=== PATIENT | female | born 1995 | race African-American/Black ===

== ENCOUNTER 2017-11-17 03:17 | Emergency (ER) | payer SELFPAY ==
[2017-11-17 03:32] VITALS: BP 133/92; PULSE 83; RESP 18; TEMP 98; O2SAT 100
[2017-11-17] MEDS ORDERED: SODIUM CHLOR 0.9% 1000 ML INJ 1,000 ML IV ONE (04:00)
[2017-11-17] MEDS ORDERED: IBUPROFEN 600 MG TAB PO ONE (04:15)
--- NOTE | 2017-11-17 04:16 | PD ---
HPI . contraction like pain Chief Complaint: Related Problem Time Seen by Provider: 03:35 Travel History International Travel<30 days: No Contact w/Intl Traveler<30days: No Traveled to known affect area: No History of Present Illness HPI pt is having bleeding vaginally for 3 hrs and severe cramping suprapubic abdomen that started tonight, pt is 7 weeks , she reports that she has twin conception and severe 10/10 cramping and bright red blood , contraction like pain . intermittent , Pt has had prior spontaneous losses and terminations as well. PFSH Past Medical History Immunizations Current: Yes ?: : 6 Para: 0 Miscarriage: 3 : 2 Social History Alcohol Use: Yes Tobacco Use: Yes Substance Use: No Allergies-Medications (Allergen,Severity, Reaction): Coded Allergies: No Known Allergies (Unverified , 11/17/17) Reported Meds & Prescriptions Reported Meds & Active Scripts Active Tylenol (Acetaminophen) 325 Mg Tab 650 Mg PO Q6H PRN Review of Systems Except as stated in HPI: all other systems reviewed are Neg Physical Exam Narrative GENERAL: non distended severe cramping pain in abdo suprapubic area SKIN: Warm and dry. HEAD: Atraumatic. Normocephalic. EYES: Pupils equal and round. No scleral icterus. No injection or drainage. ENT: No nasal bleeding or discharge. Mucous membranes pink and moist. NECK: Trachea midline. No JVD. CARDIOVASCULAR: Regular rate and rhythm. RESPIRATORY: No accessory muscle use. Clear to auscultation. Breath sounds equal bilaterally. GASTROINTESTINAL: Abdomen soft, non-tender, nondistended. Hepatic and splenic margins not palpable. POC US one pole seen no Heart beat, by this MD MUSCULOSKELETAL: Extremities without clubbing, cyanosis, or edema. No obvious deformities. NEUROLOGICAL: Awake and alert. No obvious cranial nerve deficits. Motor grossly within normal limits. Five out of 5 muscle strength in the arms and legs. Normal speech. PSYCHIATRIC: Appropriate mood and affect; insight and judgment normal. Data Data Last Documented VS Vital Signs Date Time Temp Pulse Resp B/P (MAP) Pulse Ox O2 Delivery O2 Flow Rate FiO2 11/17/17 07:01 99.3 82 17 125/69 99 Orders Orders Complete Blood Count With Diff (11/17/17 03:35) Comprehensive Metabolic Panel (11/17/17 03:35) Beta Hcg (Quant/Titer) (11/17/17 03:35) Type And Screen (11/17/17 03:35) Sodium Chlor 0.9% 1000 Ml Inj (Ns 1000 M (11/17/17 04:00) Ibuprofen (Motrin) (11/17/17 04:15) Rhogam Only (11/17/17 05:47) Blood Product Administration (11/17/17 05:47) Sodium Chlor 0.9% 250 Ml Inj (Ns 250 Ml (11/17/17 06:00) Us Pelvis (Ques Pr/Ect)W Trans (11/17/17 07:00) Ed Discharge Order (11/17/17 10:36) Labs Laboratory Tests Test 11/17/17 02:35 White Blood Count 7.9 TH/MM3 Red Blood Count 4.46 MIL/MM3 Hemoglobin 13.0 GM/DL Hematocrit 36.6 % Mean Corpuscular Volume 81.9 FL Mean Corpuscular Hemoglobin 29.2 PG Mean Corpuscular Hemoglobin Concent 35.6 % Red Cell Distribution Width 12.2 % Platelet Count 250 TH/MM3 Mean Platelet Volume 7.9 FL Neutrophils (%) (Auto) 34.8 % Lymphocytes (%) (Auto) 49.5 % Monocytes (%) (Auto) 11.8 % Eosinophils (%) (Auto) 3.4 % Basophils (%) (Auto) 0.5 % Neutrophils # (Auto) 2.8 TH/MM3 Lymphocytes # (Auto) 3.9 TH/MM3 Monocytes # (Auto) 0.9 TH/MM3 Eosinophils # (Auto) 0.3 TH/MM3 Basophils # (Auto) 0.0 TH/MM3 CBC Comment DIFF FINAL Differential Comment Blood Urea Nitrogen 8 MG/DL Creatinine 0.74 MG/DL Random Glucose 96 MG/DL Total Protein 7.4 GM/DL Albumin 4.0 GM/DL Calcium Level 9.2 MG/DL Alkaline Phosphatase 71 U/L Aspartate Amino Transf (AST/SGOT) 19 U/L Alanine Aminotransferase (ALT/SGPT) 25 U/L Total Bilirubin 0.8 MG/DL Sodium Level 140 MEQ/L Potassium Level 3.8 MEQ/L Chloride Level 106 MEQ/L Carbon Dioxide Level 23.7 MEQ/L Anion Gap 10 MEQ/L Estimat Glomerular Filtration Rate 96 ML/MIN Human Chorionic Gonadotropin, Quant 572 MIU/ML MDM Medical Decision Making Medical Screen Exam Complete: Yes Emergency Medical Condition: Yes Differential Diagnosis threatened AB vs UTI vs round ligament pain Narrative Course POC US only 1 embryo seen and there is no fetak HR beat seen signed out to next atending for official US pelvic Diagnosis Primary Impression: Threatened Scripts Acetaminophen (Tylenol) 325 Mg Tab 650 MG PO Q6H Y for PAIN SCALE 1 TO 10, #20 TAB 0 Refills Prov: Josue Ag MD 11/17/17 Rey Acosta MD November 17, 2017 04:16
[2017-11-17 04:17] LABS: AUTOMATED NEUTROPHIL # 2.8 TH/MM3 (1.8-7.7); BASOPHIL % 0.5 % (0.0-2.0); EOSINOPHIL # 0.3 TH/MM3 (0-0.4); EOSINOPHIL % 3.4 % (0.0-4.0); HEMATOCRIT 36.6 % (35.0-46.0); LYMPH % 49.5 % (9.0-44.0); LYMPHOCYTE # 3.9 TH/MM3 (1.0-4.8); MEAN CELL VOLUME 81.9 FL (80.0-100.0); MEAN CORPUSCULAR HEMOGLOBIN 29.2 PG (27.0-34.0); MEAN CORPUSCULAR HGB CONC 35.6 % (32.0-36.0); MEAN PLATELET VOLUME 7.9 FL (7.0-11.0); MONO % 11.8 % (0.0-8.0); MONOCYTE # 0.9 TH/MM3 (0-0.9); NEUT % 34.8 % (16.0-70.0); PLATELET COUNT 250 TH/MM3 (150-450); RED BLOOD COUNT 4.46 MIL/MM3 (4.00-5.30); RED CELL DISTRIBUTION WIDTH 12.2 % (11.6-17.2); WHITE BLOOD COUNT 7.9 TH/MM3 (4.0-11.0)
[2017-11-17 04:19] LABS: AST (GOT) 19 U/L (15-37); BICARBONATE 23.7 MEQ/L (21.0-32.0); BLOOD UREA NITROGEN 8 MG/DL (7-18); CALCIUM 9.2 MG/DL (8.5-10.1); CHLORIDE 106 MEQ/L (98-107); CREATININE 0.74 MG/DL (0.50-1.00); GLOMERULAR FILTRATION RATE 96 ML/MIN (>89); GLUCOSE,RANDOM 96 MG/DL (74-106); SODIUM (NA) 140 MEQ/L (136-145)
[2017-11-17 04:24] LABS: ALKALINE PHOSPHATASE 71 U/L (45-117); ALT (GPT) 25 U/L (10-53); TOTAL BILIRUBIN ADULT 0.8 MG/DL (0.2-1.0); TOTAL PROTEIN 7.4 GM/DL (6.4-8.2)
[2017-11-17] MEDS ORDERED: SODIUM CHLOR 0.9% 250 ML INJ 250 ML IV ONE (06:00)
[2017-11-17 06:44] VITALS: BP 122/58; PULSE 86; RESP 16; TEMP 99.7; O2SAT 98
[2017-11-17 07:01] VITALS: BP 125/69; PULSE 82; RESP 17; TEMP 99.3; O2SAT 99
--- NOTE | 2017-11-17 10:26 | RADRPT ---
EXAM DATE/TIME: 11/17/2017 08:45 [place] COMPARISON: No previous studies available for comparison. INDICATIONS : Bleeding since this morning. LAB(S): Beta-hC MEDICAL HISTORY : . SURGICAL HISTORY : None. ENCOUNTER: Initial ACUITY: 1 day PAIN SCORE: 4/10 LOCATION: Bilateral pelvis MEASUREMENTS: UTERUS: 10.7 x 7.5 x 5.9 cm RIGHT OVARY: 2.9 x 3.5 x 1.6 cm LEFT OVARY: 2.5 x 2.5 x 1.1 cm FREE FLUID: Yes Trace amount of fluid in the cul-de-sac. CROWN RUMP LENGTH: 1.93 cm = 8 WKS 3 DAYS FHR: Not visualized. FINDINGS: UTERUS: Myometrium is homogeneous with thickened isoechoic area in the posterior uterine body characteristic of a uterine contraction. This resolves with transvaginal imaging technique. There is an abnormal ramiro ngated gestational sac measuring approximately 8.3 x 4.4 x 3.4 cm. It contains an embryo but no heart rate is identified. No color Doppler signal is identified within the embryo either. RIGHT OVARY: Ovary contains no mass or significant cystic lesion. There is a hypoechoic area within the right ova ry measuring 14 mm, it appearance could be consistent with a corpus luteal cyst. LEFT OVARY: Ovary contains no mass or significant cystic lesion. MISCELLANEOUS: There is trace free fluid. CONCLUSION: 1. Abnormal gestational sac which has an abnormal shape and too large for the size of the embryo pres ent. Embryo size suggests an 8 week and 3 day but no heart rate is identified which i s abnormal. 2. Uterine contraction is identified during the examination. 3. There is trace free fluid in the pelvis. Ludin Neff MD on November 17, 2017 at 10:19 Board Certified Radiologist. This report was verified electronically.
[2017-11-17] MEDS ORDERED: TYLE325T PO (10:47)
--- NOTE | 2017-11-17 10:47 | PD ---
Physical Exam Date Seen by Provider: November 17, 2017 Time Seen by Provider: 07:00 Narrative Patient signed out to me at [address] Acosta, please see Dr. Acosta's note for further details. She is here with cramping and bleeding, , initial ultrasound done bedside shows IUP with no heart tone. Official ultrasound ordered. Her hCG is low for dates. She is Rh- and as per patient, she has been given RhoGam today. Laboratory Tests Test 11/17/17 02:35 Lymphocytes (%) (Auto) 49.5 % (9.0-44.0) Monocytes (%) (Auto) 11.8 % (0.0-8.0) Human Chorionic Gonadotropin, Quant 572 MIU/ML (0-5) Last 24 hours Impressions Pelvis Ultrasound 11/17/17 0700 Signed Impressions: Service Date/Time: Friday, November 17, 2017 08:45 - CONCLUSION: 1. Abnormal gestational sac which has an abnormal shape and too large for the size of the embryo present. Embryo size suggests an 8 week and 3 day but no heart rate is identified which is abnormal. 2. Uterine contraction is identified during the examination. 3. There is trace free fluid in the pelvis. Ludin Neff MD Official ultrasound shows a 8 week with abnormal gestational sac, and no heart tone, concerning for possible demise. However, and she is still fairly early. My plan would be to release her with close follow-up to OB/ HOSPITAL SECURITY OFFICER. Return for any worsening in bleeding, pain, and new symptoms as needed. The plan was discussed with the patient and she states understanding. Data Data Last Documented VS Vital Signs Date Time Temp Pulse Resp B/P (MAP) Pulse Ox O2 Delivery O2 Flow Rate FiO2 11/17/17 07:01 99.3 82 17 125/69 99 Orders Orders Complete Blood Count With Diff (11/17/17 03:35) Comprehensive Metabolic Panel (11/17/17 03:35) Beta Hcg (Quant/Titer) (11/17/17 03:35) Type And Screen (11/17/17 03:35) Sodium Chlor 0.9% 1000 Ml Inj (Ns 1000 M (11/17/17 04:00) Ibuprofen (Motrin) (11/17/17 04:15) Rhogam Only (11/17/17 05:47) Blood Product Administration (11/17/17 05:47) Sodium Chlor 0.9% 250 Ml Inj (Ns 250 Ml (11/17/17 06:00) Us Pelvis (Ques Pr/Ect)W Trans (11/17/17 07:00) Ed Discharge Order (11/17/17 10:36) Labs Laboratory Tests Test 11/17/17 02:35 White Blood Count 7.9 TH/MM3 Red Blood Count 4.46 MIL/MM3 Hemoglobin 13.0 GM/DL Hematocrit 36.6 % Mean Corpuscular Volume 81.9 FL Mean Corpuscular Hemoglobin 29.2 PG Mean Corpuscular Hemoglobin Concent 35.6 % Red Cell Distribution Width 12.2 % Platelet Count 250 TH/MM3 Mean Platelet Volume 7.9 FL Neutrophils (%) (Auto) 34.8 % Lymphocytes (%) (Auto) 49.5 % Monocytes (%) (Auto) 11.8 % Eosinophils (%) (Auto) 3.4 % Basophils (%) (Auto) 0.5 % Neutrophils # (Auto) 2.8 TH/MM3 Lymphocytes # (Auto) 3.9 TH/MM3 Monocytes # (Auto) 0.9 TH/MM3 Eosinophils # (Auto) 0.3 TH/MM3 Basophils # (Auto) 0.0 TH/MM3 CBC Comment DIFF FINAL Differential Comment Blood Urea Nitrogen 8 MG/DL Creatinine 0.74 MG/DL Random Glucose 96 MG/DL Total Protein 7.4 GM/DL Albumin 4.0 GM/DL Calcium Level 9.2 MG/DL Alkaline Phosphatase 71 U/L Aspartate Amino Transf (AST/SGOT) 19 U/L Alanine Aminotransferase (ALT/SGPT) 25 U/L Total Bilirubin 0.8 MG/DL Sodium Level 140 MEQ/L Potassium Level 3.8 MEQ/L Chloride Level 106 MEQ/L Carbon Dioxide Level 23.7 MEQ/L Anion Gap 10 MEQ/L Estimat Glomerular Filtration Rate 96 ML/MIN Human Chorionic Gonadotropin, Quant 572 MIU/ML [facility] Medical Record Reviewed: Yes Supervised Visit with STEPHANE: No Diagnosis Primary Impression: Threatened Referrals: Ludin Edward MD Med/Other Pt SpecificInfo: Prescription(s) given Scripts Acetaminophen (Tylenol) 325 Mg Tab 650 MG PO Q6H Y for PAIN SCALE 1 TO 10, #20 TAB 0 Refills Prov: Josue Ag MD 11/17/17 Disposition: 01 DISCHARGE HOME Condition: Stable Josue Ag MD November 17, 2017 10:47
== END 2017-11-17 11:04 | disposition home or self-care (01) ==
LOC: NEPC 03:17
DX: O20.0 Threatened abortion (principal); O99.331 Smoking (tobacco) complicating pregnancy, first trimester; Z3A.08 8 weeks gestation of pregnancy
CPT/HCPCS: 76700; 76817; 80053; 84702; 85025; 86850; 86900; 86901; 90384; 96360; 96361; 96372; 99285; J7030; J2790

== ENCOUNTER 2017-12-27 16:40 | Emergency (ER) | payer OTHER ==
[~2017-12-27] VITALS: Ht 160 cm; Wt 68.0 kg
[~2017-12-27 16:40] MED LIST: TYLE325T PO
[2017-12-27 17:05] VITALS: BP 126/86; PULSE 90; RESP 17; TEMP 98.8; O2SAT 100
[2017-12-27 17:29] LABS: AUTOMATED NEUTROPHIL # 1.6 TH/MM3 (1.8-7.7); BASOPHIL % 0.7 % (0.0-2.0); EOSINOPHIL # 0.3 TH/MM3 (0-0.4); EOSINOPHIL % 5.3 % (0.0-4.0); HEMATOCRIT 36.8 % (35.0-46.0); HEMOGLOBIN 12.1 GM/DL (11.6-15.3); LYMPH % 46.8 % (9.0-44.0); LYMPHOCYTE # 2.2 TH/MM3 (1.0-4.8); MEAN CELL VOLUME 85.3 FL (80.0-100.0); MEAN CORPUSCULAR HGB CONC 32.8 % (32.0-36.0); MEAN PLATELET VOLUME 7.9 FL (7.0-11.0); MONO % 13.4 % (0.0-8.0); MONOCYTE # 0.6 TH/MM3 (0-0.9); NEUT % 33.8 % (16.0-70.0); PLATELET COUNT 266 TH/MM3 (150-450); RED BLOOD COUNT 4.31 MIL/MM3 (4.00-5.30); RED CELL DISTRIBUTION WIDTH 13.6 % (11.6-17.2); WHITE BLOOD COUNT 4.8 TH/MM3 (4.0-11.0)
--- NOTE | 2017-12-27 19:02 | PD ---
HPI Chief Complaint: Related Problem Time Seen by Provider: 18:01 Travel History International Travel<30 days: No Contact w/Intl Traveler<30days: No Traveled to known affect area: No History of Present Illness HPI Patient is a 22-year-old female presented to the emergency department for evaluation of abdominal cramping and vaginal bleeding. Patient states that she is . Her last menstrual cycle was in August. Patient also states that she would like to see a psychiatrist, she has a history of bipolar disorder , she been off of her medications since September. She recently moved here from [place]. She reports feeling suicidal on occasion. She denies any suicidal ideations right now. Patient reports previous suicide attempt. Patient reports the cramping is a 3 out of 10, constant. Vaginal bleeding is consistent with her normal menstrual cycle. PFSH Past Medical History Bipolar Disorder: Yes Immunizations Current: Yes ?: LMP: UNKNOWN : 6 Para: 0 Miscarriage: 3 : 2 Past Surgical History Abdominal Surgery: Yes (HERNIA) Social History Alcohol Use: No Tobacco Use: No Substance Use: No Allergies-Medications (Allergen,Severity, Reaction): Coded Allergies: No Known Allergies (Unverified , 12/27/17) Reported Meds & Prescriptions Reported Meds & Active Scripts Active Tylenol (Acetaminophen) 325 Mg Tab 650 Mg PO Q6H PRN Review of Systems Except as stated in HPI: all other systems reviewed are Neg Genitourinary: Positive: Pelvic Pain (Cramping), Vaginal Bleeding Psychiatric: Positive: Depression, Suicidal Ideations, Mood Disorder Physical Exam Narrative GENERAL: Well-developed, well-nourished, alert -Filipino female. Presenting in no acute distress. SKIN: Warm and dry. HEAD: Atraumatic. Normocephalic. EYES: Pupils equal and round. No scleral icterus. No injection or drainage. ENT: No nasal bleeding or discharge. Mucous membranes pink and moist. NECK: Trachea midline. No JVD. CARDIOVASCULAR: Regular rate and rhythm. RESPIRATORY: No accessory muscle use. Clear to auscultation. Breath sounds equal bilaterally. GASTROINTESTINAL: Abdomen soft, non-tender, nondistended. Hepatic and splenic margins not palpable. Positive bowel sounds, no rebound, no guarding. MUSCULOSKELETAL: Extremities without clubbing, cyanosis, or edema. No obvious deformities. NEUROLOGICAL: Awake and alert. No obvious cranial nerve deficits. Motor grossly within normal limits. Five out of 5 muscle strength in the arms and legs. Normal speech. PSYCHIATRIC: Depressed mood and flat affect; insight and judgment normal. Data Data Last Documented VS Vital Signs Date Time Temp Pulse Resp B/P (MAP) Pulse Ox O2 Delivery O2 Flow Rate FiO2 12/27/17 17:05 98.8 90 17 126/86 (99) 100 Orders Orders Complete Blood Count With Diff (12/27/17 17:07) Beta Hcg (Quant/Titer) (12/27/17 17:07) Psych Screen (12/27/17 18:15) Us Pelvis Comp Police Chief Deputy/Non-Preg (12/27/17 ) Labs Laboratory Tests Test 12/27/17 17:14 White Blood Count 4.8 TH/MM3 Red Blood Count 4.31 MIL/MM3 Hemoglobin 12.1 GM/DL Hematocrit 36.8 % Mean Corpuscular Volume 85.3 FL Mean Corpuscular Hemoglobin 28.0 PG Mean Corpuscular Hemoglobin Concent 32.8 % Red Cell Distribution Width 13.6 % Platelet Count 266 TH/MM3 Mean Platelet Volume 7.9 FL Neutrophils (%) (Auto) 33.8 % Lymphocytes (%) (Auto) 46.8 % Monocytes (%) (Auto) 13.4 % Eosinophils (%) (Auto) 5.3 % Basophils (%) (Auto) 0.7 % Neutrophils # (Auto) 1.6 TH/MM3 Lymphocytes # (Auto) 2.2 TH/MM3 Monocytes # (Auto) 0.6 TH/MM3 Eosinophils # (Auto) 0.3 TH/MM3 Basophils # (Auto) 0.0 TH/MM3 CBC Comment DIFF FINAL Differential Comment Human Chorionic Gonadotropin, Quant 2 MIU/ML MDM Medical Decision Making Medical Screen Exam Complete: Yes Emergency Medical Condition: Yes Medical Record Reviewed: Yes Interpretation(s) Laboratory Tests Test 12/27/17 17:14 White Blood Count 4.8 TH/MM3 Red Blood Count 4.31 MIL/MM3 Hemoglobin 12.1 GM/DL Hematocrit 36.8 % Mean Corpuscular Volume 85.3 FL Mean Corpuscular Hemoglobin 28.0 PG Mean Corpuscular Hemoglobin Concent 32.8 % Red Cell Distribution Width 13.6 % Platelet Count 266 TH/MM3 Mean Platelet Volume 7.9 FL Neutrophils (%) (Auto) 33.8 % Lymphocytes (%) (Auto) 46.8 % Monocytes (%) (Auto) 13.4 % Eosinophils (%) (Auto) 5.3 % Basophils (%) (Auto) 0.7 % Neutrophils # (Auto) 1.6 TH/MM3 Lymphocytes # (Auto) 2.2 TH/MM3 Monocytes # (Auto) 0.6 TH/MM3 Eosinophils # (Auto) 0.3 TH/MM3 Basophils # (Auto) 0.0 TH/MM3 CBC Comment DIFF FINAL Differential Comment Human Chorionic Gonadotropin, Quant 2 MIU/ML Vital Signs Date Time Temp Pulse Resp B/P (MAP) Pulse Ox O2 Delivery O2 Flow Rate FiO2 12/27/17 17:05 98.8 90 17 126/86 (99) 100 Differential Diagnosis Threatened miscarriage versus normal menstruation versus bipolar disorder versus suicidal ideations versus depression versus other Narrative Course Patient is well-appearing 22-year-old female presenting for evaluation of vaginal bleeding and cramping in addition to bipolar disorder with worsening symptomatology. Patient's vital signs are stable. Patient was protocoled in triage. HCG levels 2, it had been 572 in November. Medical records reviewed. On November 17 patient had a formal ultrasound performed that showed an abnormal gestational sac with no heart tones. Patient was unaware that she had miscarried, she was informed of previous findings and began to cry. Repeated formal ultrasound was ordered to rule out retained products of conception. It does appear the patient is having a normal menstrual cycle at this time. Additionally a psych screen has been placed. Care of patient transferred to Alber MORENO. He will determine patient's disposition. Lyiah Bruner Dec 27, 2017 19:02
--- NOTE | 2017-12-27 19:09 | RADRPT ---
EXAM DATE: 12/27/2017 6:59 PM EDT AGE/SEX: 22 years / Female INDICATIONS: Bleeding with previous miscarriage last month. CLINICAL DATA: This is the patient's subsequent encounter. Patient reports that signs and symptoms h ave been present for 1 month and indicates a pain score of 6/10. MEDICAL/SURGICAL HISTORY: . Bipolar. . Hernia repair. COMPARISON: [facility] – [place], [place] PELVIS (QUEST PREG/ECTOPIC) W/TRANSVAG, 11/17/2017. . MEASUREMENTS: Uterus:__7.9 x 4.0 x 4.8 cm Endometrial Stripe:__4 mm Right Ovary:__ 3.3 x 1.6 x 2.3 cm Left Ovary:__ 2.9 x 2.2 x 1.7 cm FINDINGS: Uterus: The myometrium has homogeneous echotexture without mass. Small amount of fluid in the endom etrial canal. No intrauterine . Right Ovary: Appears normal Left Ovary: Appears normal Other: No free fluid. CONCLUSION: 1. Small amount of fluid in endometrial canal. 2. No intrauterine seen. Electronically signed by: Braden Galvez MD 12/27/2017 7:07 PM EDT
--- NOTE | 2017-12-27 19:16 | PD ---
Physical Exam Date Seen by Provider: Dec 27, 2017 Time Seen by Provider: 19:14 Data Data Last Documented VS Vital Signs Date Time Temp Pulse Resp B/P (MAP) Pulse Ox O2 Delivery O2 Flow Rate FiO2 12/27/17 17:05 98.8 90 17 126/86 (99) 100 Orders Orders Complete Blood Count With Diff (12/27/17 17:07) Beta Hcg (Quant/Titer) (12/27/17 17:07) Psych Screen (12/27/17 18:15) Us Pelvis Comp Unhairer/Non-Preg (12/27/17 ) Labs Laboratory Tests Test 12/27/17 17:14 White Blood Count 4.8 TH/MM3 Red Blood Count 4.31 MIL/MM3 Hemoglobin 12.1 GM/DL Hematocrit 36.8 % Mean Corpuscular Volume 85.3 FL Mean Corpuscular Hemoglobin 28.0 PG Mean Corpuscular Hemoglobin Concent 32.8 % Red Cell Distribution Width 13.6 % Platelet Count 266 TH/MM3 Mean Platelet Volume 7.9 FL Neutrophils (%) (Auto) 33.8 % Lymphocytes (%) (Auto) 46.8 % Monocytes (%) (Auto) 13.4 % Eosinophils (%) (Auto) 5.3 % Basophils (%) (Auto) 0.7 % Neutrophils # (Auto) 1.6 TH/MM3 Lymphocytes # (Auto) 2.2 TH/MM3 Monocytes # (Auto) 0.6 TH/MM3 Eosinophils # (Auto) 0.3 TH/MM3 Basophils # (Auto) 0.0 TH/MM3 CBC Comment DIFF FINAL Differential Comment Human Chorionic Gonadotropin, Quant 2 MIU/ML [facility] Medical Record Reviewed: Yes Supervised Visit with STEPHANE: Yes Interpretation(s) Laboratory Tests Test 12/27/17 17:14 White Blood Count 4.8 TH/MM3 Red Blood Count 4.31 MIL/MM3 Hemoglobin 12.1 GM/DL Hematocrit 36.8 % Mean Corpuscular Volume 85.3 FL Mean Corpuscular Hemoglobin 28.0 PG Mean Corpuscular Hemoglobin Concent 32.8 % Red Cell Distribution Width 13.6 % Platelet Count 266 TH/MM3 Mean Platelet Volume 7.9 FL Neutrophils (%) (Auto) 33.8 % Lymphocytes (%) (Auto) 46.8 % Monocytes (%) (Auto) 13.4 % Eosinophils (%) (Auto) 5.3 % Basophils (%) (Auto) 0.7 % Neutrophils # (Auto) 1.6 TH/MM3 Lymphocytes # (Auto) 2.2 TH/MM3 Monocytes # (Auto) 0.6 TH/MM3 Eosinophils # (Auto) 0.3 TH/MM3 Basophils # (Auto) 0.0 TH/MM3 CBC Comment DIFF FINAL Differential Comment Human Chorionic Gonadotropin, Quant 2 MIU/ML Last 24 hours Impressions Pelvis Ultrasound 12/27/17 0000 Signed Impressions: CONCLUSION: 1. Small amount of fluid in endometrial canal. 2. No intrauterine seen. Differential Diagnosis MDM: High Differential diagnoses: Schizophrenia, schizoaffective disorder, bipolar, anxiety, depression, adjustment reaction, mood disorder NOS, ODD, depressive disorder NOS, psychosis NOS, substance induced mood disorder, infection, electrolyte abnormality, malingering. Narrative Course Mental health screening discussed with the patient. Psychiatric screen ordered. The patient laboratory tests have been reviewed. Patient's ultrasound is unremarkable. Patient has been medically cleared for psychiatric evaluation. This is medical clearance for psychiatric admission. Diagnosis Primary Impression: Medical clearance for psychiatric admission Condition: Stable Alber Minaya Dec 27, 2017 19:15
[2017-12-28 07:31] VITALS: BP 123/76; PULSE 95; RESP 18; O2SAT 100
[2017-12-28 14:00] VITALS: BP_SYST 127; BP_SYST 137; BP_DIAS 76; BP_DIAS 78; PULSE 69; PULSE 78; RESP 16; TEMP 98; TEMP 98.7; O2SAT 99
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
[2017-12-28] MEDS ORDERED: SERO100T PO (15:35)
== END 2017-12-28 16:27 | disposition home or self-care (01) ==
LOC: NEPD 16:40 → NEPJ 12-28 16:27
DX: Z02.89 Encounter for other administrative examinations (principal); F31.31 Bipolar disorder, current episode depressed, mild; O03.9 Complete or unspecified spontaneous abortion without complication; Z86.59 Personal history of other mental and behavioral disorders
CPT/HCPCS: 76856; 84702; 85025; 99284